=== PATIENT | female | born 1985 | race Two or more races ===

== ENCOUNTER 2019-01-29 06:20 | Day surgery (SDC) | payer OTHER ==
[~2019-01-29 06:20] MED LIST: DICLOFENAC POTA50 MG PO; OMEPRAZOLE10 MG
[2019-01-29] MEDS ORDERED: KETO10TA2 PO (08:31)
[2019-01-29] MEDS ORDERED: DEXILANT60 MG PO (08:31)
[2019-01-29] MEDS ORDERED: ZOFRAN4 MG PO (08:32)
[2019-01-29] MEDS ORDERED: PERCOCET 5-3251 EACH PO (08:37)
== END 2019-01-29 10:40 | disposition home or self-care (01) ==
LOC: CIR.AMB 06:20
DX: K81.1 Chronic cholecystitis (principal)

== ENCOUNTER 2022-05-13 02:05 | Outpatient (CLI) | payer OTHER ==
[~2022-05-13 02:05] MED LIST changes: +DEXILANT60 MG PO; +KETO10TA2 PO; +PERCOCET 5-3251 EACH PO; +ZOFRAN4 MG PO
[2022-05-13] MEDS ORDERED: PRENATAL CAPLE1 EAC1 PO (02:12)
== END 2022-05-13 11:55 | disposition home or self-care (01) ==
LOC: OBS/DEL 02:05
PROVIDERS: ATTEND Obstetrics & Gynecology
DX: O98.813 Other maternal infectious and parasitic diseases complicating pregnancy, third trimester (principal); B37.31 Acute candidiasis of vulva and vagina; Z3A.32 32 weeks gestation of pregnancy; R10.2 Pelvic and perineal pain

== ENCOUNTER 2022-06-15 13:16 | Inpatient (IN) | payer OTHER ==
[~2022-06-15] VITALS: Ht 175.3 cm; Wt 81.6 kg
[~2022-06-15 13:16] MED LIST changes: +PRENATAL CAPLE1 EAC1 PO
== END 2022-06-26 11:20 | disposition home or self-care (01) | DRG 768 ==
LOC: LDR 06-23 21:32 → OB/GYN 06-24 13:28
PROVIDERS: ADMIT Obstetrics & Gynecology; ATTEND Obstetrics & Gynecology
PROC: 10D07Z6 Extraction of Products of Conception, Vacuum, Via Natural or Artificial Opening (ICD-10-PCS; principal; 2022-06-23)
PROC: 0DQR0ZZ Repair Anal Sphincter, Open Approach (ICD-10-PCS; 2022-06-23)
PROC: 0W8NXZZ Division of Female Perineum, External Approach (ICD-10-PCS; 2022-06-23)
PROC: 4A1HXCZ Monitoring of Products of Conception, Cardiac Rate, External Approach (ICD-10-PCS; 2022-06-23)
DX: O70.21 Third degree perineal laceration during delivery, IIIa (principal); Z37.0 Single live birth; O99.824 Streptococcus B carrier state complicating childbirth; O66.5 Attempted application of vacuum extractor and forceps; Z3A.38 38 weeks gestation of pregnancy